=== PATIENT | female | born 1985 | race Two or more races ===

== ENCOUNTER → 2022-07-13 | Outpatient (CLI) | payer OTHER ==
[~2022-07-13] MED LIST: IRON27TA2 PO; MM S100C PO; PRENTAB53 PO; VITA-243 PO
== END ==
LOC: M LABSMTC 11:21
PROVIDERS: ATTEND Anesthesiology
DX: Z01.812 Encounter for preprocedural laboratory examination (principal); Z11.52 Encounter for screening for COVID-19

== ENCOUNTER 2022-07-17 12:15 | Inpatient (IN) | payer OTHER ==
[~2022-07-17] VITALS: Ht 175.3 cm; Wt 97.1 kg
[~2022-07-17 12:15] MED LIST changes: +LIDOCAINE 2% 100MG/5ML SDV (FOR ANES.) As Ordered ONE; +MIDAZOLAM INJ 2MG/2ML VIAL As Ordered ONE; +ONDANSETRON 4MG 2ML VIAL As Ordered ONE; +ceFAZolin SOD 2 GM in IV 1 EA IV ONE; +fentaNYL 100 MCG/2 ML INJECTION As Ordered ONE; +propofoL 200 MG/20 ML VIAL As Ordered ONE
[2022-07-17] MEDS ORDERED: LR 1,000 ML IV SCH ×2 (12:50→17:00)
[2022-07-17 13:13] LABS: HEMATOCRIT 35.7 % (36.0-47.0); HEMOGLOBIN 11.1 g/dl (12.0-15.5); MEAN CORPUSCULAR HEMOGLOBIN 26.6 pg (27.0-33.0); MEAN CORPUSCULAR HGB CONC 31.1 g/dl (32.0-36.5); MEAN CORPUSCULAR VOLUME 85.6 fl (80.0-96.0); PLATELET COUNT, AUTOMATED 284 10^3/uL (150-450); RED BLOOD COUNT 4.17 10^6/uL (4.00-5.40); WHITE BLOOD COUNT 5.9 10^3/uL (4.0-10.0)
[2022-07-17] MEDS ORDERED: ROCURONIUM BROMIDE 50MG/5ML VIAL As Ordered ONE ×2 (13:46→15:22)
[2022-07-17] MEDS ORDERED: SUGAMMADEX SODIUM 500 MG/5 ML VIAL (BRIDION) As Ordered ONE (13:46)
[2022-07-17] MEDS ORDERED: VASOPRESSIN INJ 20UNITS/ML 1ML VIAL As Ordered ONE (13:51)
[2022-07-17] MEDS ORDERED: ACETAMINOPHEN 1000MG 100ML IV BAG As Ordered ONE (14:31)
[2022-07-17] MEDS ORDERED: SUCCINYLCHOLINE 100MG/5ML SYRINGE As Ordered ONE (15:35)
[2022-07-17] MEDS ORDERED: HYDROmorphone HCL 2MG/ML 1ML VIAL As Ordered ONE (15:36)
[2022-07-17] MEDS ORDERED: METOCLOPRAMIDE INJ 10MG/2ML VIAL As Ordered ONE (16:57)
[2022-07-17] MEDS ORDERED: oxyCODONE 5MG TAB PO PRN (17:00)
[2022-07-17] MEDS ORDERED: fentaNYL 100 MCG/2 ML INJECTION IV PRN (17:00)
[2022-07-17] MEDS ORDERED: METOCLOPRAMIDE INJ 10MG/2ML VIAL IV PRN (17:00)
[2022-07-17] MEDS ORDERED: ONDANSETRON 4MG 2ML VIAL IV PRN ×2 (17:00→17:15)
[2022-07-17] MEDS ORDERED: NS 1,000 ML IV SCH (17:15)
[2022-07-17] MEDS ORDERED: MORPHINE 1MG/ML IN 0.9% NACL 100ML IV BAG IV PRN (17:15)
[2022-07-17] MEDS ORDERED: NALOXONE INJ 0.4MG/1ML VIAL IV PRN (17:15)
[2022-07-17] MEDS ORDERED: EPIDURAL/PCA KEYS XX PRN (17:15)
[2022-07-17] MEDS ORDERED: diphenhydrAMINE 50MG/ML VIAL IV PRN (17:15)
[2022-07-17] MEDS ORDERED: MOM 30ML SUSPENSION UDC PO PRN (17:15)
[2022-07-17] MEDS: HYDROMORPHONE HCL 0.5 MG/ 0.5 ML SYRINGE IV PRN ×2 (17:23→17:44)
[2022-07-17 18:30] VITALS: BP 121/68
[2022-07-17 19:00] VITALS: BP 119/77
[2022-07-17 19:48] LABS: HEMATOCRIT 32.7 % (36.0-47.0); HEMOGLOBIN 10.5 g/dl (12.0-15.5); MEAN CORPUSCULAR HEMOGLOBIN 27.7 pg (27.0-33.0); MEAN CORPUSCULAR HGB CONC 32.1 g/dl (32.0-36.5); MEAN CORPUSCULAR VOLUME 86.3 fl (80.0-96.0); PLATELET COUNT, AUTOMATED 223 10^3/uL (150-450); RED BLOOD COUNT 3.79 10^6/uL (4.00-5.40); WHITE BLOOD COUNT 13.8 10^3/uL (4.0-10.0)
[2022-07-17 20:00] VITALS: BP 116/70
[2022-07-17 21:00] VITALS: BP 120/70
[2022-07-17] MEDS: DOCUSATE SODIUM 100MG CAPSULE PO SCH (21:00)
[2022-07-17] MEDS: LR 1,000 ML IV SCH (21:50)
[2022-07-17] MEDS: SIMETHICONE 80MG CHEW TAB PO PRN (21:57)
[2022-07-17 22:00] VITALS: BP 132/73
[2022-07-18 02:00] VITALS: BP 122/70
[2022-07-18 05:57] LABS: HEMATOCRIT 28.7 % (36.0-47.0); HEMOGLOBIN 9.3 g/dl (12.0-15.5); MEAN CORPUSCULAR HEMOGLOBIN 27.7 pg (27.0-33.0); MEAN CORPUSCULAR HGB CONC 32.4 g/dl (32.0-36.5); MEAN CORPUSCULAR VOLUME 85.4 fl (80.0-96.0); PLATELET COUNT, AUTOMATED 202 10^3/uL (150-450); RED BLOOD COUNT 3.36 10^6/uL (4.00-5.40)
[2022-07-18 06:00] VITALS: BP 119/71
[2022-07-18] MEDS: LR 1,000 ML IV SCH ×3 (06:00→16:03)
[2022-07-18] MEDS: KETOROLAC 30 MG/ML 1ML VIAL IV SCH ×3 (06:01→11:34)
[2022-07-18] MEDS: DOCUSATE SODIUM 100MG CAPSULE PO SCH ×2 (07:43→20:14)
[2022-07-18 10:00] VITALS: BP 118/58
[2022-07-18 14:00] VITALS: BP 119/63
[2022-07-18] MEDS: PERCOCET 5MG/325MG TAB PO PRN (15:31)
[2022-07-18 18:00] VITALS: BP 125/80
[2022-07-18] MEDS: IBUPROFEN 800 MG TAB PO SCH (20:15)
[2022-07-18 22:11] VITALS: BP 116/68
[2022-07-19 02:00] VITALS: BP 114/65
[2022-07-19] MEDS: IBUPROFEN 800 MG TAB PO SCH ×2 (03:35→12:44)
[2022-07-19 05:58] VITALS: BP 120/60
[2022-07-19] MEDS: LR 1,000 ML IV SCH (09:13)
[2022-07-19] MEDS: DOCUSATE SODIUM 100MG CAPSULE PO SCH (09:14)
[2022-07-19] MEDS: PERCOCET 5MG/325MG TAB PO PRN (09:15)
[2022-07-19] MEDS: SIMETHICONE 80MG CHEW TAB PO PRN (09:20)
== END 2022-07-19 14:20 | disposition home or self-care (01) | DRG 519 ==
LOC: M OR 12:22 → M OBS 18:26
PROVIDERS: ADMIT Obstetrics & Gynecology; ATTEND Obstetrics & Gynecology
PROC: 0UB90ZZ Excision of Uterus, Open Approach (ICD-10-PCS; principal; 2022-07-17 14:00)
DX: D25.9 Leiomyoma of uterus, unspecified (principal); Z87.891 Personal history of nicotine dependence

== ENCOUNTER → 2023-04-21 | Outpatient (REF) | payer OTHER ==
[~2023-04-21] MED LIST changes: -LIDOCAINE 2% 100MG/5ML SDV (FOR ANES.) As Ordered ONE; -MIDAZOLAM INJ 2MG/2ML VIAL As Ordered ONE; +MULTTAB20 PO; -ONDANSETRON 4MG 2ML VIAL As Ordered ONE; -ceFAZolin SOD 2 GM in IV 1 EA IV ONE; -fentaNYL 100 MCG/2 ML INJECTION As Ordered ONE; -propofoL 200 MG/20 ML VIAL As Ordered ONE
== END ==
LOC: M PLALAB 16:35
PROVIDERS: ATTEND Obstetrics & Gynecology
DX: Z01.419 Encounter for gynecological examination (general) (routine) without abnormal findings (principal)

== ENCOUNTER → 2023-06-15 | Outpatient (REF) | LOC: M EMP 07:49 | PROVIDERS: ATTEND Family Medicine | DX: Z11.52 Encounter for screening for COVID-19 (principal) ==

== ENCOUNTER → 2025-03-05 | Outpatient (CLI) | payer OTHER | LOC: M RAD 07:30 | DX: N92.0 Excessive and frequent menstruation with regular cycle (principal) ==